=== PATIENT | female | born 1980 | race Caucasian/White ===

== ENCOUNTER 2016-07-03 15:05 | Emergency (ER) | payer SELFPAY ==
[2016-07-03] MEDS ORDERED: Sodium Chloride 0.9% 1,000 ML PRIMARY IV ONE (15:22)
[2016-07-03] MEDS ORDERED: ONDANSETRON 4 MG/2 ML VIAL IVP ONE (15:22)
[2016-07-03] MEDS ORDERED: KETOROLAC 15 MG/1 ML VIAL IVP ONE (15:22)
[2016-07-03] MEDS ORDERED: LORazepam 2 MG/1 ML VIAL IVP ONE (15:22)
--- NOTE | 2016-07-03 15:27 | PDOC ---
Chest Pain HPI - General Chief Complaint: Chest Pain Stated Complaint: CHEST PAIN Date Seen by Provider: 07/03/16 Time Seen by Provider: 15:23 Source: Patient Exam Limitations: POSITIVE: No limitations Treatment Prior to Arrival: REPORTS: Aspirin Nurse's Notes Reviewed & Considered: Yes - History of Present Illness Initial Comments: Patient comes in today with chief complaint of chest pain. 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 Now she presents with chest pain that began last night. She describes her pain as pressure like an elephant sitting on her chest. She does have associated shortness of breath. She denies any radiation of her pain. She denies any fever chills or sweats, no headache, no cough, no nausea vomiting or diarrhea, no hematuria or dysuria. Body Location Affected: REPORTS: Chest Timing: REPORTS: Abrupt Duration: <24 hours Severity: Severe Context: REPORTS: Rest Quality: REPORTS: Pressure Radiation: REPORTS: None Associated Symptoms: REPORTS: Shortness of Breath, Hurts to Breathe Modifying Factors: improves with: None Reported Similar Symptoms Previously: No Recently seen/treated/hospitalized: No Any Prior Injuries Related to Current Complaint?: No - Patient Home Medications Home Medications: Home Medications Alprazolam [Xanax] 2 mg PO BEDTIME 07/03/16 Progesterone,Micronized [Progesterone] 100 mg PO DAILY 07/03/16 Temazepam 22.5 mg PO DAILY 07/03/16 - Patient Allergies Allergies/Adverse Reactions: Allergies Allergy/AdvReac Type Severity Reaction Status Date / Time No Known Allergies Allergy Verified 07/03/16 15:52 ROS - Limitations ROS Limitations: No Limitations Constitution: REPORTS: Denies Symptoms Cardiovascular: REPORTS: Chest Pain Respiratory: REPORTS: Hurts To Breathe, Shortness Of Breath Neurological: REPORTS: Denies Neuro Symptoms Gastrointestinal: REPORTS: Denies GI Symptoms Endocrine: REPORTS: Denies Symptoms Musculoskeletal: REPORTS: Denies MS Symptoms Genitourinary: REPORTS: Denies Symptoms Eyes: REPORTS: Denies Symptoms ENT: REPORTS: Denies Symptoms Skin: REPORTS: Denies Skin Symptoms Lympathic: REPORTS: Denies Lympathic Symptoms Immunologic: POSITIVE: Denies Symptoms Psychiatric: POSITIVE: Anxiety Chest Pain PE - General Appearance General Appearance: REPORTS: Alert, Cooperative, No Evidence of Trauma, Moderate Distress - HEENT HEENT: POSITIVE: Head Inspection Nml, Eyes Inspection Nml, Ears Inspection Nml, Nose Inspection Nml, PERRL, EOMI - Neck Neck: REPORTS: Normal Inspection - Respiratory Respiratory: REPORTS: No Respiratory Distress, Breath Sounds Normal, Other ( Increase chest pressure with palpation over her sternum.) - Cardiovascular Cardiovascular: REPORTS: Regular Rate and Rhythm, Heart Sounds Normal, No Murmur , No Gallop, No Friction Rub, No JVD - Abdomen Abdomen: Soft: (All Quadrants), Normal Bowel Sounds: (All Quadrants), Denies Tenderness: (All Quadrants) - Skin Skin: REPORTS: Intact, Normal For Race, Warm, Dry, No Rash - Extremities Extremity: Non-Tender: (All Extremities), Normal ROM: (All Extremities), Normal Inspection: (All Extremities), Pelvis Stable: (All Extremities) - Neurological / Psychological Neurological: POSITIVE: Affect Apporpriate, Oriented X3, dot etcher Normal As Tested, Motor Normal, Sensation Normal Chest Pain Progress - Results Reviewed by me Xrays/CTs/US Reviewed by me: Yes Discussed with Radiologist: Yes Lab Results Reviewed: Yes Lab Results:: Laboratory Results 07/03/16 07/03/16 Range/Units 15:38 20:30 WBC 7.74 (4.8-10.8) 10^3/uL RBC 5.09 (4.20-5.40) 10^6/uL Hgb 15.9 (12.0-16.0) g/dL Hct 45.3 (37.0-47.0) % MCV 89.0 (81-99) FL MCH 31.2 H (27-31) PG MCHC 35.1 (33-37) g/dL RDW Std Deviation 45.1 (39-50) fL RDW Coeff of Annette 14.1 (11.5-14.5) % Plt Count 250 (140-350) 10*3/uL MPV 10.8 (7.4-12.2) FL Immature Gran % (Auto) 0.1 (0-5) % Neut % (Auto) 62.3 (50-80) % Lymph % (Auto) 28.4 (10-50) % [place] % (Auto) 7.5 (5-15) % Eos % (Auto) 0.9 (0-8) % Baso % (Auto) 0.8 (0-1) % Immature Gran # (Auto) 0.01 10*3/UL Neut # (Auto) 4.82 10*3/UL Lymph # (Auto) 2.20 10*3/uL [place] # (Auto) 0.58 (0.3-0.8) 10*3/UL Eos # (Auto) 0.07 10*3/UL Baso # (Auto) 0.06 10*3/UL WBC Morphology Comment Normal morphology (NORM) Plt Morphology Comment Normal morphology (NORM) RBC Morph Comment Normal morphology (NORM) D-Dimer 0.24 (0.00-0.59) mg/L Sodium 144 (135-145) meq/L Potassium 3.6 L (3.8-5.2) meq/L Chloride 110 (98-112) meq/L Carbon Dioxide 21 L (23-33) meq/L Anion Gap 13 (5-20) BUN 13 (7-22) mg/dL Creatinine 0.6 (0.50-1.20) mg/dL Estimated GFR > 60 (>60 ml/min/1.73m(2)) BUN/Creatinine Ratio 21.66 H (6-20) Glucose 89 (78-110) mg/dL Calculated Osmolality 296.0 H (267-292) mOsm/kg Calcium 10.1 (8.7-10.7) mg/dL Magnesium 2.1 (1.6-2.4) mg/dL Total Bilirubin 0.6 (0.3-1.2) mg/dL AST 30 (8-39) IU/L ALT 37 (9-52) IU/L Alkaline Phosphatase 52 (38-126) IU/L Lactate Dehydrogenase 369 (313-618) IU/L Total Creatine Kinase 52 (30-136) IU/L Troponin I < 0.012 < 0.012 (< 0.040) ng/mL C-Reactive Protein < 0.5 (0.0-0.9) mg/dL Total Protein 7.1 (6.1-8.0) g/dL Albumin 4.3 (3.5-4.8) g/dL Globulin 2.8 (2.50-4.10) g/dL Albumin/Globulin Ratio 1.50 (1.3-2.0) mg/g TSH 0.592 (0.2700-4.2000) uIU/mL Free T4 1.39 (0.93-1.71) ng/dL Serum HCG, Qual Negative Ur Collection Type Clean catch urine U Specif Grav (Refrac) 1.005 Urine Opiates Screen Negative (NEG) Ur Buprenorphine Negative (NEG) Ur Oxycodone Screen Negative (NEG) Urine Methadone Screen Negative (NEG) Ur Propoxyphene Screen Negative (NEG) Barbiturate Screen Negative (NEG) U Tricyclic Antidepress Negative (NEG) Phencyclidine Screen Negative (NEG) Amphetamines Screen Negative (NEG) U Methamphetamines Scrn Negative (NEG) Benzodiazepines Screen Positive H (NEG) Cocaine Screen Negative (NEG) U Marijuana (THC) Screen Negative (NEG) Serum Alcohol < 10 (0-10) mg/dL EKG Interpretation:: POSITIVE: Normal Sinus Rhythm - Patient's Progress Pain Medication Addressed: POSITIVE: Yes Re-Examine Time: 21:55 Status: POSITIVE: Improved MDM / ED Course: Patient was examined, an IV started, blood drawn and sent to the lab for studies , radiographic examinations and EKG were obtained. Patient received IV Toradol , Zofran, and normal saline as well as Ativan and nitroglycerin. Her symptoms did improve. Findings: CBC is unremarkable, comprehensive metabolic panel is unremarkable serial cardiac enzymes are negative. D-dimer is normal. EKG shows sinus rhythm. CT scan shows consolidation in the left base. No PE is identified. Next Assessment: Chest pain with normal enzymes and EKG. Pneumonia present. Plan: Discharge home on a Zithromax and. Follow-up with her primary care physician in [place] upon return home. Return to the emergency room if increased shortness of breath, fever, increased chest pain. Quality Measure Initiative: CP/AMI: POSITIVE: EKG, ASA Quality Measure Initiative: CAP: POSITIVE: CXR or CT - Consult Counseled: POSITIVE: Patient, RE: Lab Results, RE: Radiology Results, RE: DX, RE : Need for F/U Patient Care Time - Estimated PCT Patient Care Time (In Minutes): 45 Vital Signs - Recent Vital Signs Vital Signs: Vital Signs (Last 8 hours) Temp Pulse Resp BP Pulse Ox 07/03/16 15:08 84 07/03/16 15:05 97.5 F 84 18 115/78 98 - VS Reviewed Vital Signs Reviewed: Yes Discharge Clinical Impression: Chest pain, Pneumonia Discharge Disposition: Discharged to Home Condition: Fair Patient Instructions Given at Discharge: Chest Pain (ED), Pneumonia (ED)
[2016-07-03 15:44] LABS: BASOPHILS # (AUTO) 0.06 10*3/UL; BASOPHILS % (AUTO) 0.8 % (0-1); EOSINOPHILS # (AUTO) 0.07 10*3/UL; EOSINOPHILS % (AUTO) 0.9 % (0-8); HEMATOCRIT 45.3 % (37.0-47.0); HEMOGLOBIN 15.9 g/dL (12.0-16.0); MEAN CORPUSCULAR HEMOGLOBIN 31.2 PG (27-31); MEAN CORPUSCULAR HGB CONC 35.1 g/dL (33-37); MEAN PLATELET VOLUME 10.8 FL (7.4-12.2); MONOCYTES # (AUTO) 0.58 10*3/UL (0.3-0.8); MONOCYTES % (AUTO) 7.5 % (5-15); NEUTROPHILS # (AUTO) 4.82 10*3/UL; NEUTROPHILS % (AUTO) 62.3 % (50-80); RED BLOOD COUNT 5.09 10^6/uL (4.20-5.40)
[2016-07-03 15:54] LABS: URINE SAMPLE TYPE CLEAN CATCH URINE
[2016-07-03 15:55] LABS: AMPHETAMINE SCREEN NEGATIVE (NEG); CANNABINOID SCREEN,URINE NEGATIVE (NEG); COCAINE SCREEN NEGATIVE (NEG); METHADONE URINE SCREEN NEGATIVE (NEG); METHAMPHETAMINES SCREEN,URINE NEGATIVE (NEG); OPIATE SCREEN,URINE NEGATIVE (NEG); PLATELET MORPHOLOGY COMMENT NORMAL MORPHOLOGY (NORM); RBC MORPHOLOGY COMMENT NORMAL MORPHOLOGY (NORM); URINE SPECIFIC GRAVITY - MAN 1.005; WBC MORPHOLOGY COMMENT NORMAL MORPHOLOGY (NORM)
[2016-07-03 15:59] LABS: BLOOD UREA NITROGEN 13 mg/dL (7-22); BUN/CREATININE RATIO 21.66 (6-20); CALCIUM 10.1 mg/dL (8.7-10.7); EST GLOMERULAR FILTRATION > 60 (>60 ml/min/1.73m(2)); MAGNESIUM 2.1 mg/dL (1.6-2.4); SERUM ALBUMIN 4.3 g/dL (3.5-4.8)
[2016-07-03 16:07] LABS: C-REACTIVE PROTEIN < 0.5 mg/dL (0.0-0.9)
[2016-07-03 16:37] LABS: FREE T4 (FREE THYROXINE) 1.39 ng/dL (0.93-1.71)
[2016-07-03] MEDS ORDERED: Belladon/PHENobarbital Elixir 10 ML, Lidocaine Viscous Liquid 2% 15 ML, Mag Hyd/Al Hyd/... PO ONE ×3 (17:32)
[2016-07-03] MEDS ORDERED: ACETAMINOPHEN 500 MG TABLET PO ONE (18:28)
[2016-07-03 18:58] VITALS: RESP 18; TEMP 97.5
[2016-07-03] MEDS ORDERED: AZITHROMYCIN 250 MG TABLET PO ONE (22:00)
--- NOTE | 2016-07-04 05:43 | EKG ---
[address] [address] Measurements Intervals [place] Rate: 70 P: 58 [place]: 158 QRS: 38 QRSD: 102 T: 53 QT: 413 QTc: 433 Interpretive Statements SINUS RHYTHM No previous ECG available for comparison Electronically Signed On 07-04-16 09:55:06 MDT by Ludwig Henry [email or web address]
--- NOTE | 2016-07-06 07:59 | DI ---
XR CXR 1VW,07/03/2016 3:22 PM: Clinical History: Chest pain Previous Exam: None at this facility. Findings: A single frontal radiograph of the chest is obtained, and demonstrate clear lungs. The cardiomediasti num and bony thorax are unremarkable. Impression: Normal chest.
== END 2016-07-03 22:37 | disposition home or self-care (01) ==
LOC: ER 15:05
DX: J18.9 Pneumonia, unspecified organism (principal); R06.02 Shortness of breath; R07.9 Chest pain, unspecified
CPT/HCPCS: 36415; 71010; 71275; 80053; 80305; 80320; 82550; 83615; 83735; 84439; 84443; 84484; 84703; 85025; 85379; 86140; 93005; 93010; 96361; 96374; 96375; 99284; J1885; J2060; J2405; J7030